=== PATIENT | female | born 1970 | race Caucasian/White ===

== ENCOUNTER 2025-07-13 13:06 | Outpatient (REF) | payer OTHER, SELFPAY ==
--- NOTE | 2025-07-13 | EMG_ITS ---
Chief complaint: Hand numbness especially when waking up in the morning. History of breast cancer, ongoing chemotherapy, status post lumpectomy. Reason for referral: Evaluate for neuropathy Referred by: Dr. Potts Procedure done: Bilateral upper extremities NCS/EMG Precautions and/or limitations: None The limb temperature was monitored continuously and remained between 32-36 degrees C during the performance of the NCS. Nerve Conduction Studies Anti Sensory Summary Table ?Stim Site NR Onset (ms) Norm Onset (ms) Peak (ms) Norm Peak (ms) O-P Amp (?V) Norm O-P Amp Site1 Site2 Delta-0 (ms) Dist (cm) Víctor (m/s) Norm Víctor (m/s) Left Median Anti Sensory (2nd Digit) Wrist ? 2.7 3.6 <3.6 25.1 >10 Wrist 2nd Digit 2.7 14.0 52 Right Median Anti Sensory (2nd Digit) Wrist ? 2.5 3.5 <3.6 46.0 >10 Wrist 2nd Digit 2.5 14.0 56 Right Radial Anti Sensory (Thumb) Forearm ? 1.8 2.3 <3.1 35.3 Forearm Thumb 1.8 0.0 Left Ulnar Anti Sensory (5th Digit) Wrist ? 2.8 3.7 <3.7 30.5 >15.0 Wrist 5th Digit 2.8 14.0 50 Right Ulnar Anti Sensory (5th Digit) Wrist ? 3.0 3.7 <3.7 27.3 >15.0 Wrist 5th Digit 3.0 14.0 47 Motor Summary Table ?Stim Site NR Onset (ms) Norm Onset (ms) O-P Amp (mV) Norm O-P Amp iAmp (mV) Amp (1st) (%) Site1 Site2 Delta-0 (ms) Dist (cm) Víctor (m/s) Norm Víctor (m/s) Left Median Motor (Abd Poll Brev) Wrist ? 3.8 <3.9 12.2 >4.5 13.9 100.0 Elbow Wrist 3.5 19.0 54 >45 Elbow ? 7.3 10.5 11.9 86.1 Right Median Motor (Abd Poll Brev) Wrist ? 3.5 <3.9 10.6 >4.5 11.7 100.0 Elbow Wrist 3.5 18.0 51 >45 Elbow ? 7.0 10.0 11.1 94.3 Left Ulnar Motor (Abd Dig Minimi) Wrist ? 3.0 <3.0 7.2 >5 8.9 100.0 B Elbow Wrist 3.6 18.0 50 >45 B Elbow ? 6.6 7.1 9.0 98.6 A Elbow B Elbow 1.9 10.0 53 >45 A Elbow ? 8.5 6.9 9.0 95.8 Right Ulnar Motor (Abd Dig Minimi) Wrist ? 3.0 <3.0 10.6 >5 13.4 100.0 B Elbow Wrist 3.6 18.0 50 >45 B Elbow ? 6.6 10.5 13.5 99.1 A Elbow B Elbow 1.5 10.0 67 >45 A Elbow ? 8.1 10.4 13.5 98.1 EMG ?Side Muscle Nerve Root Ins Act Fibs Psw Amp Dur Poly Recrt Int Pat Comment Right 1stDorInt Ulnar C8-T1 Nml Nml Nml Nml Nml 0 Nml Complete Right FlexCarRad Median C6-7 Nml Nml Nml Nml Nml 0 Nml Complete Right Biceps Musculocut C5-6 Nml Nml Nml Nml Nml 0 Nml Complete Right Triceps Radial C6-7-8 Nml Nml Nml Nml Nml 0 Nml Complete Right Deltoid Axillary C5-6 Nml Nml Nml Nml Nml 0 Nml Complete Left 1stDorInt Ulnar C8-T1 Nml Nml Nml Nml Nml 0 Nml Complete Left FlexCarRad Median C6-7 Nml Nml Nml Nml Nml 0 Nml Complete Left Biceps Musculocut C5-6 Nml Nml Nml Nml Nml 0 Nml Complete Left Triceps Radial C6-7-8 Nml Nml Nml Nml Nml 0 Nml Complete Left Deltoid Axillary C5-6 Nml Nml Nml Nml Nml 0 Nml Complete FINDINGS: All motor and sensory nerves tested showed normal latencies, amplitudes and conduction velocities. Concentric needle EMG was performed in selected muscles of the bilateral upper extremities. Study did not reveal signs of electric abnormalities as shown in the table above. IMPRESSION: 1. This is a normal study. 2. There is no electrodiagnostic evidence for median neuropathy, ulnar neuropathy, brachial plexopathy, or cervical radiculopathy. Thank you for your kind referral. Anna Marie Vergara MD, [place] Board Certified, [place] Board of [employer] Medicine and Rehabilitation (ABPMR) Board Certified, [place] Board of Electrodiagnostic Medicine (ABEM) CODIN [phone] MTDD
--- OUTSIDE RECORDS SUMMARY | 2025-07-13 15:42 | XMS_ITS | Clinical Summary ---
Author Organization [place] [address] [address] [facility] Building Address [address] [place] [address] Phone Care Team Providers Care [employer] Sales Consultant Name Role Phone Luli Zhaoa Primary Care Provider [phone] Allergies Active Allergy Reactions Criticality Noted Date Comments Pollen Extracts 02/16/2022 Medications senna (SENOKOT) 8.6 mg tablet Take 1 Tablet by mouth 2 times daily as needed (constipation ). 06/07/20 24 Active polyethylene glycol (MIRALAX) 17 gram packet Take 1 Packet by mouth daily. Active fexofenadine (SD) 180 mg tablet Take 1 tablet (180 mg total) by mouth 1 (one) time each day. 05/30/20 24 Active zoledronic acid (ZOMETA) 4 mg/100 mL piggyback Inject into the vein Every 3 Months. 06/18/20 22 Active fluticasone propionate (FLONASE) 50 mcg/actuation nasal spray Administer 1 spray into each nostril 1 (one) time each day. 16 g 5 11/14/19 25 Active gabapentin (NEURONTIN) 100 mg capsule Take 1 capsule (100 mg total) by mouth 2 (two) times a day. 180 each 1 11/14/19 25 Active betamethasone dipropionate (DIPROSONE) 0.05 % cream Apply topically 2 (two) times a day. 04/17/20 24 Active ondansetron (ZOFRAN) 8 mg tablet Take 1 tablet (8 mg total) by mouth every 8 (eight) hours if needed. for nausea and vomiting 06/29/20 Active prochlorperazine (COMPAZINE) 10 mg tablet Take 1 tablet (10 mg total) by mouth every 6 (six) hours if needed for vomiting or nausea. 06/29/20 Active traMADoL (ULTRAM) 50 mg tablet Take 1 tablet (50 mg total) by mouth every 8 (eight) hours if needed for severe pain. 05/26/20 24 Active SACITUZUMAB GOVITECAN-HZIY IV Infuse into a venous catheter. Active sertraline (ZOLOFT) 25 mg tablet TAKE 1 TABLET BY MOUTH 1 TIME EACH DAY. 90 tablet 05/07/20 25 Active cyclobenzaprine (FLEXERIL) 10 mg tabletIndication s:Cervical radiculopathy Take 0.5-1 tablet by mouth nightly as needed 30 tablet 1 05/24/20 25 Active omeprazole (PriLOSEC) [address] capsule Take 1 capsule (20 mg total) by mouth 1 (one) time each day. 90 each 1 05/24/20 25 2025 Active diclofenac (Voltaren Arthritis Pain) 1 % topical gel Apply 2 g topically 4 (four) times a day. 150 g 1 06/12/20 25 Active lidocaine (LIDODERM) 5 % patchIndications :Cervical radiculopathy APPLY 1 PATCH DAILY APPLY TO PAINFUL AREA FOR 12 HOURS PER DAY, REMOVE FOR 12 HOURS 30 patch 1 06/18/20 25 Active temazepam (RESTORIL) 15 mg capsule Take 1 capsule (15 mg total) by mouth at bedtime as needed for sleep. Max Daily Amount: 15 mg 28 capsule 2 06/26/20 25 Active lidocaine (LIDODERM) 5 % patchIndications :Cervical radiculopathy Apply 1 patch topically 1 (one) time each day. Apply to painful area 12 hours per day, remove for 12 hours. 30 each 1 03/27/20 25 2024 Discontinued temazepam (RESTORIL) 15 mg capsule Take 1 capsule (15 mg total) by mouth at bedtime as needed for sleep. 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 ([facility] V24) 10/22/2021 Primary malignant neoplasm o f breast with metastasis ([facility] V24, [facility] V28) 10/22/2021 Seasonal allergic rhinitis due to pollen 022 Encounters Date Type Department Care Team Description 06/12/2025 2:00 PM EDT Consult Orthopedic Surgery - [address] [phone] Cari Potts PA Polyarthralgia (Primary Dx); Bilateral hand pain; Bilateral carpal tunnel syndrome; Cubital tunnel syndrome on left 05/24/2025 11:00 AM EDT Office Visit Internal Medicine - [address] [phone] Ignacio Szymanski PA Bilateral hand pain (Primary Dx); Cervical radiculopathy; Mixed hyperlipidemia; Sinusitis, unspecified chronicity, unspecified location; Fibromyalgia; Gastroesophageal reflux disease, unspecified whether esophagitis present; Generalized anxiety disorder; Insomnia, unspecified type; Primary malignant neoplasm of breast with metastasis ([facility] V24, [facility] V28); Mild episode of recurrent major depressive disorder ([facility] V24) from Last 3 Months Immunizations Immunization Administration Dates Next Due Influenza trivalent, with pr eservative (Fluzone; Afluria) 6mo and older 08/31/2024 IkerChem SARS-CoV-2 COVID-19, mRNA, LNP-S, preservative free 05/30/2021,12/30/2020,12/09/2020 Pneumococcal conjugate 13 va lent (Prevnar 13, PCV13) 2mo and older 08/11/2021 Pneumococcal polysaccharide 23 valent (Pneumovax 23) 2yo and older 10/24/2021 Tdap Tetanus diptheria acell ular pertussis (Boostrix; Adacel) 7yo and older 04/07/2023 Medical History Medical History Date Comments Seasonal allergic rhinitis due to pollen 10/22/19 DX:Seasonal allergic rhinitis due to pollen Generalized anxiety disorder 10/22/2021 DX: Generalized anxiety disorder 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 (CMS/HCC V24) 10/22/2021 DX:Mild episode of r ecurrent major depressive disorder (HCC) 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 DX:Balta 's disease Metastatic breast cancer 10/22/2021 DX:[place] static breast cancer Gastroesophageal reflux disease 10/22/2021 DX:Gastroesophageal reflux disease Fibromyalgia 10/22/2021 DX:Fibromyalgia Insomnia 11/19/2021 DX:Insomnia Hyperlipidemia 11/20/2021 DX:Hyperlipidemi a Social History Tobacco Use Types Packs/Day Years Used Date Smoking Tobacco: Never Smokeless Tobacco: Never Tobacco Cessation:Counseling Given: Not Answered Alcohol Use Standard Drinks/Week Comments Never 0 (1 standard drink = 0.6 oz pur e alcohol) Comments No Sex and Gender Information Value Date Recorded Sex Assigned at Not on file Legal Sex Female 5:43 AM EST Gender Identity Not on file Sexual Orientation Not on file Obstetrics History Last Filed Vital Signs Vital Sign Reading Time Taken Comments Blood Pressure 122/78 05/24/2025 10:43 AM EDT Pulse 84 05/24/2025 10:43 AM EDT Temperature - - Respiratory Rate 16 05/24/2025 10:43 AM EDT Oxygen Saturation - - Inhaled Oxygen Concentration - - Weight 75.8 kg (167 lb) 05/24/2025 10:43 AM EDT Height 172.7 cm (5' 8 ) 11/10/2023 9:27 AM EST Body Mass Index 25.39 11/10/2023 9:27 AM EST Plan of Treatment Upcoming Encounters Date Type Department Care Team (Late st Contact Info) Description 09/11/2025 11:00 AM EST Office Visit Orthopedic Surgery [facility] [address] [facility] [address] [place] [phone] Cari Potts PA [address] [place] [address] 10/08/2025 11:00 AM EST Office Visit Internal Medicine - [address] [phone] Ignacio Szymanski PA [address] [place] [address] Health Maintenance Due Date Last Done Comments Breast Cancer Screening 1968 Hepatitis B Vaccines (1 of 3 - 19+ 3-dose series) 1987 Zoster Vaccines (1 of 2) 1987 RSV Immunization Adult Patients (1 - Risk 50-74 years 1-dose series) 2018 HIV Screening 09/06/2022 Social Influencers of Health Screening 09/06/2022 COVID-19 Vaccine (4 - 2024-2 6 season) 2025 05/30/2021, 12/30/2020, 12/09/2020 Influenza Vaccine (#1) 2025 08/31/2024 Colorectal Cancer Screening: Colonoscopy 05/30/2025 05/30/2020 Cervical Cancer Screening: P ap Smear 12/04/2025 12/04/2022 Hypertension/CHF/CAD Annual BMP Blood Test 05/24/2026 05/24/2025, 11/14/2024, 11/10/2023 Pneumococcal Vaccine: 50+ Years (3 of 3 - PCV20 or PCV21) 10/24/2026 10/24/2021, 08/11/2021 Cholesterol Screening (Lipid Panel) 05/24/2030 05/24/2025, 11/10/2023 DTaP,Tdap,and Td Vaccines (2 - Td or Tdap) 04/07/2033 04/07/2023 Hepatitis C Screening Completed 11/19/2021 Depression Screening Completed 02/13/2025, 06/07/2024 HIB Vaccines Aged Out No longer eligi ble based on patient's age to complete this topic HPV Vaccines Aged Out No longer eligi ble based on patient's age to complete this topic Hepatitis A Vaccines Aged Out No long er eligible based on patient's age to complete this topic IPV Vaccines Aged Out No longer eligi ble based on patient's age to complete this topic MMR Vaccines Aged Out No longer eligi ble based on patient's age to complete this topic Meningococcal ACWY Vaccine Aged Out N o longer eligible based on patient's age to complete this topic Meningococcal B Vaccine Aged Out No l onger eligible based on patient's age to complete this topic RSV Immunization Patients Under 20 months Aged Out No longer eligible b ased on patient's age to complete this topic Varicella Vaccines Aged Out No longer eligible based on patient's age to complete this topic Procedures Procedure Name Priority Date/Time Associated Diagnosis Comments XR HAND 3+ VIEWS BILAT Routine 06/12/2025 2:00 PM EDT Bilateral hand pain COMPREHENSIVE METABOLIC PANEL Routine 05/24/2025 11:46 AM EDT Mixed hyperlipidemia LIPID PANEL WITH REFLEX TO DIRECT LDL Routine 05/24/2025 11:46 AM EDT Mixed hyperlipidemia HM DEPRESSION SCREENING Routine 06/07/2024 PAP SMEAR Routine 12/04/2022 HEPATITIS C SCREENING Routine 11/19/2021 COLONOSCOPY Routine 05/30/2020 from Last 3 Months or Most Recently Relevant to Health Maintenance Results * XR Hand 3+ Views bilat (06/12/2025 2:00 PM EDT) Anatomical Region Laterality Modality Upper Extremities, Hand Bilateral Computed Radiography Narrative 06/12/2025 2:07 PM EDT Three-view x-rays of the bilateral hands done today show no acute fractures or dislocations, no osseous lesions or abnormalites, soft tissue shadows appear normal, no significant degenerative changes Impression: Normal x-ray of the bilateral hands without osseous abnormalities Cari VENEGAS XR PROCEDURES Final Result * (ABNORMAL) Lipid panel with reflex to direct LDL (05/24/2025 11:46 AM EDT) Cholesterol 223(H) 0 - 200 mg/dL LAB CHEMISTRY METHOD 05/24/2025 4:17 PM EDT [facility] Triglycerides 90 0 - 150 mg/dL LAB CHEMISTRY METHOD 05/24/2025 4:17 PM EDT [facility] HDL 76 >=40 mg/dL LAB CHEMISTRY METHOD 05/24/2025 4:17 PM EDT [facility] LDL Calculated 129(H) 0 - 100 mg/dL LAB CHEMISTRY METHOD 05/24/2025 4:17 PM T [facility] Comment:Estimated LDL Calcul ated using equation: Total cholesterol - HDL cholesterol - (Triglycerides/5) VLDL Cholesterol [place] 18 mg/dL LAB CHEMISTRY METHOD 05/24/2025 4:17 PM EDT [facility] Non HDL Chol. (LDL+VLDL) 147(H) <145 mg/dL LAB CHEMISTRY METHOD 05/24/2025 4:17 PM [facility] Chol/HDL Ratio 2.9 0.0 - 4.4 LAB CHEMISTRY METHOD 05/24/2025 4:17 PM [facility] Blood Venous blood specimen / Unknown Venipuncture / Unknown 05/24/2025 11:46 AM EDT 05/24/2025 11:46 AM EDT Ignacio VALLEJO LAB BLOOD ORDERABLES Fi nal Result [facility] [address] [place] [address], * Comprehensive metabolic panel (05/24/2025 11:46 AM EDT) Sodium 136 133 - 145 mmol/L LAB CHEMISTRY METHOD 05/24/2025 4:17 PM T [facility] Potassium 3.8 3.5 - 5.5 mmol/L LAB CHEMISTRY METHOD 05/24/2025 4:17 PM [facility] Chloride 103 96 - 110 mmol/L LAB CHEMISTRY METHOD 05/24/2025 4:17 PM [facility] CO2 30 21 - 32 mmol/L LAB CHEMISTRY METHOD 05/24/2025 4:17 PM T [facility] Anion Gap 3 3 - 11 LAB CHEMISTRY METHOD 05/24/2025 4:17 PM [facility] Glucose 91 70 - 100 mg/dL LAB CHEMISTRY METHOD 05/24/2025 4:17 PM [facility] BUN 14 5 - 25 mg/dL LAB CHEMISTRY METHOD 05/24/2025 4:17 PM [facility] Creatinine 0.83 0.50 - 1.10 mg/dL LAB CHEMISTRY METHOD 05/24/2025 4:17 PM [facility] eGFR 83 >=60 mL/min/1. 73m2 LAB CHEMISTRY METHOD 05/24/2025 4:17 PM [facility] Comment:Calculation based on the Chronic Kidney Disease Epidemiology Collaboration (CKD-EPI) equation refit without adjustment for race. BUN/Creatinine Ratio 16.9 LAB CHEMISTRY METHOD 05/24/2025 4:17 PM [facility] Calcium 9.1 8.5 - 10.5 mg/dL LAB CHEMISTRY METHOD 05/24/2025 4:17 PM [facility] AST (SGOT) 14 10 - 42 unit/L LAB CHEMISTRY METHOD 05/24/2025 4:17 PM [facility] ALT (SGPT) 24 10 - 60 unit/L LAB CHEMISTRY METHOD 05/24/2025 4:17 PM [facility] Alkaline Phosphatase 51 42 - 121 unit/L LAB CHEMISTRY METHOD 05/24/2025 4:17 PM [facility] Total Protein 7.1 6.0 - 8.0 g/dL LAB CHEMISTRY METHOD 05/24/2025 4:17 PM [facility] Albumin 3.9 3.2 - 5.0 g/dL LAB CHEMISTRY METHOD 05/24/2025 4:17 PM [facility] Total Bilirubin 0.4 0.0 - 1.4 mg/dL LAB CHEMISTRY METHOD 05/24/2025 4:17 PM [facility] Blood Venous blood specimen / Unknown Venipuncture / Unknown 05/24/2025 11:46 AM EDT 05/24/2025 11:46 AM EDT Ignacio VALLEJO LAB BLOOD ORDERABLES Fi nal Result [facility] [address] [place] [address], [place] [phone] * Depression Screening (06/07/2024) Pathologist [facility] Depression Screening abstracted Historical Provider HEALTH MAINTENANCE Final Result * Pap Smear (12/04/2022) [facility] Pap smear abstracted, no interpretation [facility] Provider HEALTH MAINTENANCE Final Result * Hepatitis C Screening (11/19/2021) [facility] Hepatitis C Screening abstracted Historical Provider MD HEALTH MAINTENANCE Final Result * Colonoscopy (05/30/2020) [facility] Colonoscopy abstracted, no interpretation Anatomical Region Laterality Modality Other Historical Provider HEALTH MAINTENANCE Final Result from Last 3 Months or Most Recently Relevant to Health Maintenance Insurance [facility] Member Subscriber Plan / Payer (Ef fective 2021-Present) Name:DIANE SANCHEZ Relation to Subscriber:Self Name:Diane Sanchez Payer ID:[id number] Group ID:[id number] Type:Not on file Address: [place] [address] [address] [phone] MEDICAID - [place] Care Teams [employer] Sales Consultant Relationship Specialty Start Date End Date Vibha Zhao DO [address] [place] [address] PCP - General 07/14/24
--- OUTSIDE RECORDS SUMMARY | 2025-07-13 15:42 | XMS_ITS | Continuity of Care Document ---
Author Name José Luis Patrick Address [address] [place] [id number] Organization Unknown Address [address] [place] [address] Medications No known medications Problems No known problems
== END 2025-07-13 13:07 | disposition home or self-care (01) ==
LOC: HO.NEURO 13:06
PROVIDERS: PCP Physician Assistant
DX: G56.22 Lesion of ulnar nerve, left upper limb (principal); R20.0 Anesthesia of skin
CPT/HCPCS: 95886; 95911

== ENCOUNTER → 2025-07-13 13:30 | Outpatient (BNV) | payer OTHER, SELFPAY | PROVIDERS: PCP Physician Assistant; Visit Provider Physical Medicine & Rehabilitation | DX: G56.22 Lesion of ulnar nerve, left upper limb (principal); G56.03 Carpal tunnel syndrome, bilateral upper limbs | CPT/HCPCS: 95886; 95911 ==